=== PATIENT | female | born 1955 | race Caucasian/White ===

== ENCOUNTER 2018-03-25 14:03 | Outpatient (CLI) | payer MEDICARE ==
--- NOTE | 2018-03-27 14:04 | MMO ---
BILATERAL SCREENING MAMMOGRAM: Date: 03/25/18 COMPARISON: 09/13/15. HISTORY: Screening mammography. FINDINGS: This patient's mammogram was interpreted with the assistance of computer-aided detection. There are bilateral benign-appearing calcifications. Scattered fibroglandular density present. No dom inant mass, architectural distortion, or concerning microcalcification. IMPRESSION: BIRADS 2: Benign Finding(s) Annual screening mammography recommended. POS: [facility]
== END 2018-03-25 14:04 | disposition home or self-care (01) ==
LOC: SCSMAMMO 14:03
PROVIDERS: ATTEND Family Medicine
DX: Z12.31 Encounter for screening mammogram for malignant neoplasm of breast (principal)
CPT/HCPCS: 77067